=== PATIENT | female | born 1990 | race Caucasian/White ===

== ENCOUNTER → 2019-02-18 | Outpatient (CLI) | payer BC ==
[~2019-02-18] MED LIST: METF850T10 PO; PREN1TAB60 PO
[2019-02-18 16:21] LABS: BASOPHILS # (AUTO) 0.01 x10^3/uL (0-0.1); BASOPHILS % (AUTO) 0 % (0-1); EOSINOPHILS % (AUTO) 4 % (1-7); LYMPHOCYTES # (AUTO) 2.53 x10^3/uL (1-3.4); LYMPHOCYTES % (AUTO) 35 % (22-44); MD NO; MEAN CORPUSCULAR HGB CONC 33.1 g/dL (32.4-35.8); MEAN CORPUSCULAR VOLUME 87.7 fL (80-100); MEAN PLATELET VOLUME 7.2 fL (7.4-10.4); MONOCYTES # (AUTO) 0.47 x10^3/uL (0.2-0.8); MONOCYTES % (AUTO) 7 % (2-9); NEUTROPHILS # (AUTO) 3.87 x10^3/uL (1.8-6.8); NEUTROPHILS % (AUTO) 54 % (42-75); PLATELET COUNT 320 x10^3/uL (130-400); RED BLOOD COUNT 4.72 x10^6/uL (3.82-5.3); RED CELL DISTRIBUTION WIDTH 14.7 % (9.6-15.2)
== END | disposition home or self-care (01) ==
LOC: STAR 15:48
PROVIDERS: ATTEND Obstetrics & Gynecology
DX: N93.8 Other specified abnormal uterine and vaginal bleeding (principal); N94.6 Dysmenorrhea, unspecified; E28.2 Polycystic ovarian syndrome
CPT/HCPCS: 36415; 84703; 85025

== ENCOUNTER 2019-02-26 11:08 | Day surgery (SDC) | payer BC, OTHER ==
[2019-02-18 16:21] VITALS: BP 105/72
[~2019-02-26] VITALS: Ht 157.5 cm; Wt 63.6 kg
[2019-02-26] MEDS ORDERED: LACTATED RINGERS 1,000 ML IV SCH (11:23)
[2019-02-26] MEDS ORDERED: GABAPENTIN 300 MG CAPSULE PO ONE (11:30)
[2019-02-26] MEDS ORDERED: ACETAMINOPHEN 500 MG TABLET PO ONE (11:30)
[2019-02-26] MEDS ORDERED: ONDANSETRON ODT 8 MG PO ONE (11:30)
[2019-02-26] MEDS ORDERED: EPINEPHRINE 1 MG/ML, 1ML ONE (12:33)
[2019-02-26] MEDS ORDERED: SILVER NITRATE STICK TP ONE (12:33)
[2019-02-26] MEDS ORDERED: BUPIVACAINE/PF 0.25% ONE (12:33)
[2019-02-26 12:35] LABS: HCG UR SG 1.012 (1.003-1.030)
[2019-02-26] MEDS ORDERED: METHYLENE BLUE 50 MG/10 ML AMP ONE (12:43)
[2019-02-26] MEDS ORDERED: MIDAZOLAM 1 MG/ML, 2ML ONE (12:49)
[2019-02-26] MEDS ORDERED: FENTANYL PF 100 MCG/2ML ONE ×2 (12:49→14:29)
[2019-02-26] MEDS ORDERED: GLYCOPYRROLATE 0.2MG/1ML, 5ML ONE (13:09)
[2019-02-26] MEDS ORDERED: DEXAMETHASONE 4 MG/ML, 1ML ONE (13:09)
[2019-02-26] MEDS ORDERED: CEFAZOLIN 1,000 MG ONE (13:09)
[2019-02-26] MEDS ORDERED: NEOSTIGMINE 1 MG/ML, 10ML ONE (13:09)
[2019-02-26] MEDS ORDERED: SUCCINYLCHOLINE 20 MG/ML, 10ML ONE (13:09)
[2019-02-26] MEDS ORDERED: ROCURONIUM 10 MG/ML,10ML ONE (13:09)
[2019-02-26] MEDS ORDERED: PROPOFOL 10 MG/ML, 20ML ONE (13:09)
[2019-02-26] MEDS ORDERED: OXYcodone 5 MG/5 ML ORAL.SOL UDC PO PRN (14:00)
[2019-02-26] MEDS ORDERED: HYDROmorphone 2 MG/ML, 1ML IVPush PRN (14:00)
[2019-02-26] MEDS ORDERED: METOCLOPRAMIDE 5 MG/ML, 2ML IV PRN (14:00)
[2019-02-26] MEDS ORDERED: LORazepam 2 MG/ML, 1ML IVPush PRN (14:00)
[2019-02-26] MEDS ORDERED: OXYcodone 5 MG/5 ML ORAL.SOL UDC ONE (14:30)
[2019-02-26] MEDS: FENTANYL PF 100 MCG/2ML IV PRN ×3 (14:32→14:49)
[2019-02-26] MEDS ORDERED: IBUPROFEN 600 MG TABLET PO PRN (17:30)
[2019-02-26] MEDS ORDERED: IBUPROFEN 600 MG TABLET ONE (17:33)
== END 2019-02-26 19:00 | disposition home or self-care (01) ==
LOC: OUT 11:08
PROVIDERS: ATTEND Obstetrics & Gynecology
DX: D27.0 Benign neoplasm of right ovary (principal); N93.9 Abnormal uterine and vaginal bleeding, unspecified; N83.8 Other noninflammatory disorders of ovary, fallopian tube and broad ligament; Z98.890 Other specified postprocedural states
CPT/HCPCS: 58558; 58662; 81025; 88305; J0171; J0330; J0690; J1100; J2250; J2704; J2710; J3010; J3490; J7120; Q0162; Q9968